=== PATIENT | male | born 1990 | race Caucasian/White ===

== ENCOUNTER 2019-01-12 12:08 | Observation (INO) | payer MEDICAID, SELFPAY ==
--- NOTE | 2019-01-12 12:11 | RAD_ITS ---
STUDY: X-RAY - ABDOMEN/PELVIS REASON FOR EXAM: Male, 28 years old. Abdominal pain with nausea and vomiting. TECHNIQUE: Two AP supine views of the abdomen and pelvis. COMPARISON: None. FINDINGS: Normal visualized lung bases. Gas is seen within a nondistended colon and nondistended small bowel loops suggestive of a possible ileus. IV contrast is seen within the bladder in keeping with prior CT scan the abdomen. The visualized liver, spleen and kidneys are grossly normal in size and morphology. Normal soft tissue structures. Normal visualized osseous structures. RAD/Abdomen Single View IMPRESSION: Findings suggestive of an ileus gas pattern. Electronically Signed: Jason Corona, at 14:36 EDT , Service support ,
[2019-01-12 12:20] VITALS: BMI 28.2
[2019-01-12 12:31] VITALS: BMI 28.3
[2019-01-12] MEDS: Lactated Ringers 1,000 ML 100 ML IV ×2 (14:11→23:47)
--- NOTE | 2019-01-12 19:00 | HP.PCM_ITS ---
History of Present Illness Date of Admission: 01/12/19 Chief Complaint: Abdominal pain The patient is a 28 year old M who presents with a one-day history of abdominal pain along with nausea vomiting and loose stools. The patient has previous admissions for viral gastroenteritis. The patient's daughter last week had nausea vomiting and diarrhea and was diagnosed with gastric enteritis area and the patient presented to urgent care on January 05 with similar complaints of nausea vomiting and diarrhea. He was given a diagnosis of gastritis and recommended to be on a liquid diet and given Zofran tablets. He was instructed to resume his regular diet once his symptoms improved. He said his symptoms weren't that bad last week and he been doing well until yesterday when he noted some looser diarrheal stools again. This morning the patient woke up with abdominal pain and nausea with no true vomiting. The patient presented to the emergency department at [facility] with these complaints. she had mild diffuse abdominal tenderness without peritoneal signs. His extensive laboratory study/workup which included a negative lactic acid level, a white blood cell count was mildly elevated at 11.1 but otherwise normal complete blood count count without differential. Normal comprehensive metabolic panel except for mildly low magnesium level. a CT scan was performed with oral and IV contrast. This was reported as questionable ileus versus early partial small bowel obstruction. I was contacted for possible admission for this patient. I reviewed the CAT scan. I felt this was more likely an ileus picture and I saw no signs of internal herniation or closed loop obstruction. The patient incidentally has no previous abdominal surgical history or any true significant past medical history.. The patient was transferred and directly admitted to [facility]. On exam he was found to have any findings consistent with what was described above. I obtained a repeat KUB. This demonstrated small and large bowel gas without differential distention felt to be interpreted as an ileus pattern. Past Medical History Allergies No Known Allergies Allergy (Verified 01/12/19 12:26) Home Medications: Ambulatory Orders Medication Instructions Recorded NK 01/12/19 Surgical History: - - circumcision at age 12, questionable history of vasectomy Smoking Status: Current every day smoker Tobacco Use: Cigarettes Review of Systems Constitutional: Denies: Chills, Fever, Weight Change HEENT: Denies: Head Aches, Sinus Congestion, Sinus Drainage Cardiovascular: Denies: Chest Pain, Palpitations Respiratory: Denies: Cough, Shortness of breath at rest, Sputum production Gastrointestinal: Reports: Abdominal Pain, Diarrhea, Nausea, Vomiting Genitourinary: Denies: Dysuria Musculoskeletal: Denies: Joint Pain, Joint Tenderness Skin: Denies: Rash, Wounds Neurological: Denies: Numbness, Tingling, Focal weakness Psychiatric: Denies: Anxiety, Depression, Homicidal Ideations, Suicidal Ideations Hematologic/ Lymphatic: Denies: Easy Bruising, Easy Bleeding VTE Information - Inpt Only VTE Present on Admission: No - Physical Exam General: Alert, Oriented x3, Cooperative HEENT: Atraumatic, PERRLA, EOMI, Normocephalic Neck: Supple, No JVD, Negative Carotid Bruits Lungs: Clear to auscultation, Normal air movement Cardiovascular: Regular rate, No murmurs Abdomen: Bowel Sounds Present, Soft, Tender - mild diffusely tender without peritoneal signs, mildly distended Extremities: No edema, Capillary Refill Less than 3 Seconds Skin: No rashes, No breakdown Musculoskeletal: No Tenderness to Palpation of Joints or Extremities Neurological: Cranial nerves II-XII grossly intact Psych/Mental Status: Normal Affect, Appropriate Weight: 84.3 kg Body Mass Index (BMI) 28.2 Microbiology Past 72 Hours 01/12/19 16:10 Stool Lactoferrin - Final Stool 01/12/19 16:10 Stool Occult Blood (YONNY) - Final Stool Assessment/Plan abdominal pain, likely ileus secondary to gastroenteritis We will plan to maintain the patient nothing by mouth for now and IV hydration. Ordered repeat abdominal multiview in morning and repeat laboratory studies. With diarrhea and a recent history of daughter with gastritis would obtain stool studies but most likely this be a viral gastroenteritis.
[2019-01-12 19:41] VITALS: BP 107/74; PULSE 83; RESP 16; TEMP 36.7; O2SAT 98
[2019-01-12] MEDS: Acetaminophen 325 MG Tablet 650 MG PO (19:48)
[2019-01-13 01:45] VITALS: BP 118/74; PULSE 83; RESP 12; TEMP 36.9; O2SAT 98
--- NOTE | 2019-01-13 05:30 | RAD_ITS ---
STUDY: X-RAY - ABDOMEN/PELVIS REASON FOR EXAM: Male, 28 years old. History of nausea and vomiting. TECHNIQUE: AP supine and upright views of the abdomen and pelvis. COMPARISON: Comparison is made with prior study dated January 12, 2019. FINDINGS: Normal visualized lung bases. There is an unremarkable bowel gas pattern. Gas and fecal material is seen throughout the colon. There is no demonstrated free abdominal air. The visualized liver, spleen and kidneys are grossly normal in size and morphology. Normal soft tissue structures. Normal visualized osseous structures. RAD/Abd Inc Decub and/or Erect IMPRESSION: Unremarkable bowel gas pattern at this time. Electronically Signed: Jason Corona, at 9:16 EDT , Service support ,
--- NOTE | 2019-01-13 06:39 | DCINST_ITS ---
You will use the following diet at home:: No restrictions Discharge Activity: May [address], May Shower Allergies/Adverse Reactions: Allergies No Known Allergies Allergy (Verified 01/12/19 12:26) Medications to take at Discharge NK 01/12/19 Test Results: Test results from this visit will be discussed in further detail at your follow- up appointment, if applicable. Please Follow Up With: Dami Alexandre MD When: 1 week
[2019-01-13 06:52] LABS: Absolute Lymphocyte Count 2.69 X10^3/ul (0.83-4.51); Absolute Neutrophil Count 2.9 X10^3/uL (2.0-7.7); Basophil# 0.03 X10^3/uL; Basophil% 0.4 % (0-1); Eosinophil# 0.45 X10^3/uL; Eosinophils% 6.6 % (0-5); Hemoglobin 14.2 g/dl (13.0-16.5); Lymphocyte # 2.69 X10^3/ul (4.0); Lymphocyte % 39.3 % (19-41); Mean Corp Hgb Conc 33.8 g/gl (32-36); Mean Corpuscular Hgb 28.9 pg (27.0-32.0); Mean Corpuscular Volume 85.4 fL (80-94); Mean Platelet Vol. 9.6 fl (6.2-12.0); Monocyte# 0.76 X10^3/uL; Monocyte% 11.1 % (0-10); Neutrophil # 2.89 X10^3/uL (2.7-7.7); Neutrophil % 42.3 % (47-70); Platelet Count 286 K/mm3 (150-450); RBC Distribution Width CV 12.8 % (11.6-14.6); RBC Distribution Width SD 39.5 fl (35.1-43.9); Red Blood Count 4.92 M/mm3 (4.6-6.2); White Blood Count 6.8 K/mm3 (4.4-11.0)
[2019-01-13 06:56] VITALS: BP 123/77; PULSE 90; RESP 16; TEMP 36.6; O2SAT 99
[2019-01-13 07:00] LABS: POSITIVE COUNT NO; POSITIVE DIFFERENTIAL NO; POSITIVE MORPHOLOGY NO
[2019-01-13 07:13] LABS: AST(SGOT) 23 U/L (15-37); Alanine Aminotransfer ALT/SGPT 50 U/L (16-61); Albumin, Serum 3.2 g/dL (3.2-5.0); Alkaline Phosphatase 68 U/L (45-117); Anion Gap 4 (5-15); BUN 7 mg/dL (7-18); BUN/Creat Ratio 10.6 RATIO (10-20); Calcium,Total 8.6 mg/dL (8.5-10.1); Chloride 108 mmol/L (98-107); Creatinine, Serum 0.66 mg/dL (0.70-1.30); EST Glomerular Filtration Rate 152 mL/min (>60); Est Glom Filt Rate - Afr Amer 184 mL/min (>60); Estimated Creatinine Clearance 161.21 ml/min; Globulin 3.3 g/dL (2.2-4.2); Glucose 91 mg/dL (74-106); Magnesium 2.1 mg/dL (1.6-2.6); Phosphorus 3.3 mg/dL (2.5-4.9); Potassium 3.9 mmol/L (3.5-5.1); Protein, Total 6.5 g/dL (6.4-8.2); Sodium Level 140 mmol/L (136-145)
[2019-01-13 07:27] VITALS: BP 126/80; PULSE 71; RESP 18; TEMP 36.5; O2SAT 98
--- NOTE | 2019-01-13 09:12 | NURSING ---
PT TOLERATED REG BREAKFAST, NO ABD PAIN/NAUSEA/DIARRHEA THIS AM. PT WISHES TO LEAVE NOW INSTEAD OF AFTER LUNCH PER DC ORDER. DR MCELROY NOTIFIED & ORDER RECEIVED.
[2019-01-13 09:20] VITALS: BP 126/80; PULSE 71; RESP 18; TEMP 36.5; O2SAT 98
--- NOTE | 2019-01-13 15:57 | DS.PCM_ITS ---
Discharge Date and Diagnosis Date of Admission: 01/12/19 Date of Discharge: 01/13/19 - Primary Discharge Diagnosis nausea vomiting abdominal pain Hospital Course and Treatment Operations: None Summary of Care Provided: The patient is a 28 year old M a one-day history of abdominal pain along with nausea vomiting and loose stools. The patient has previous admissions for viral gastroenteritis. The patient's daughter last week had nausea vomiting and diarrhea and was diagnosed with gastric enteritis area and the patient presented to urgent care on January 05 with similar complaints of nausea vomiting and diarrhea. He was given a diagnosis of gastritis and recommended to be on a liquid diet and given Zofran tablets. He was instructed to resume his regular diet once his symptoms improved. He said his symptoms weren't that bad last week and he been doing well until yesterday when he noted some looser diarrheal stools again. This morning the patient woke up with abdominal pain and nausea with no true vomiting. The patient presented to the emergency department at [facility] with these complaints. she had mild diffuse abdominal tenderness without peritoneal signs. His extensive laboratory study/workup which included a negative lactic acid level, a white blood cell count was mildly elevated at 11.1 but otherwise normal complete blood count count without differential. Normal comprehensive metabolic panel except for mildly low magnesium level. a CT scan was performed with oral and IV contrast. This was reported as questionable ileus versus early partial small bowel obstruction. I was contacted for possible admission for this patient. I reviewed the CAT scan. I felt this was more likely an ileus picture and I saw no signs of internal herniation or closed loop obstruction. The patient incidentally has no previous abdominal surgical history or any true significant past medical history.. The patient was transferred and directly admitted to [facility] [place]. On exam he was found to have any findings consistent with what was described above. I obtained a repeat KUB. This demonstrated small and large bowel gas without differential distention felt to be interpreted as an ileus pattern. the patient noted return of bowel activity with flatus and prominence overnight. Abdominal multiview this morning demonstrated a normal bowel gas pattern. The patient was given a regular diet which he tolerated and was discharged home. - Physical Exam General: Alert, Oriented x3, Cooperative Lungs: Clear to auscultation, Normal air movement Cardiovascular: Regular rate, No murmurs Abdomen: Bowel Sounds Present, Soft, Non Tender Vital Signs Temp Pulse Resp BP Pulse Ox 97.7 F L 71 18 126/80 H 98 01/13/19 09:20 01/13/19 09:20 01/13/19 09:20 01/13/19 09:20 01/13/19 09:20 Oxygen Delivery Method Room Air Weight: 84.3 kg Body Mass Index (BMI) 28.2 Intake and Output for Last 24 Hours 01/11/19 01/12/19 01/13/19 23:59 23:59 23:59 Intake Total 1732 / 1732 Balance 1732 / 1732 Microbiology Past 72 Hours 01/12/19 19:45 Enteric Bacteriology - Final Stool 01/12/19 16:10 Stool Lactoferrin - Final Stool 01/12/19 16:10 Stool Occult Blood (YONNY) - Final Stool Laboratory Tests Past 24 Hrs 01/13/19 01/13/19 06:41 06:41 WBC 6.8 RBC 4.92 Hgb 14.2 Hct 42.0 MCV 85.4 MCH 28.9 MCHC 33.8 RDW 12.8 RDW Differential 39.5 Plt Count 286 MPV 9.6 Immature Gran % (Auto) 0.300 Neut % (Auto) 42.3 L Lymph % (Auto) 39.3 Clay % (Auto) 11.1 H Eos % (Auto) 6.6 H Baso % (Auto) 0.4 Absolute Neuts (auto) 2.9 Absolute Lymphs (auto) 2.69 Total Counted Not Reportable Sodium 140 Potassium 3.9 Chloride 108 H Carbon Dioxide 28.0 Anion Gap 4 L BUN 7 Creatinine 0.66 L Estim Creat Clear Calc 161.21 Est GFR (MDRD) Af Amer 184 Est GFR (MDRD) Non-Af 152 BUN/Creatinine Ratio 10.6 Glucose 91 Calcium 8.6 Phosphorus 3.3 Magnesium 2.1 Total Bilirubin 0.30 AST 23 ALT 50 Alkaline Phosphatase 68 Total Protein 6.5 Albumin 3.2 Globulin 3.3 Albumin/Globulin Ratio 1.0 Discharge Diet: No Restrictions Discharge Activity: May Drive, May Shower Home Medications: Medications to take at Discharge NK 01/12/19 Please Follow Up With: Dami Alexandre MD When: 1 week Medical Necessity - Tobacco Use Smoking Status: Current every day smoker Tobacco Use: Cigarettes Meaningful Use Info Meaningful Use Diagnoses (Choose all that apply): None applicable
== END 2019-01-13 09:15 | disposition home or self-care (01) ==
PROVIDERS: Admitting Provider Surgery; Referring Provider Surgery; Visit Provider Surgery
DX: R10.819 Abdominal tenderness, unspecified site (principal); R11.2 Nausea with vomiting, unspecified; F17.210 Nicotine dependence, cigarettes, uncomplicated
CPT/HCPCS: 36415; 74018; 74019; 80053; 82274; 83630; 83735; 84100; 85025; 87177; 87209; 87506; 96360; 96361; 99218; J7120; A4216; G0378; G0379

== ENCOUNTER 2024-02-09 02:18 | Emergency (ER) | payer MEDICAID, SELFPAY ==
[2024-02-09 02:19] VITALS: BP 133/99; PULSE 91; RESP 18; TEMP 36.6; O2SAT 96; BMI 38.0
--- NOTE | 2024-02-09 02:57 | CT_ITS ---
INDICATION: left flank pain EXAMINATION: CT ABDOMEN AND PELVIS WITHOUT CONTRAST - CT Abdomen And Pelvis W/O Contrast Injection TECHNIQUE: Helically acquired images were obtained of the abdomen and pelvis without oral or IV contrast. A radiation dose optimization technique was used for this scan. IV Contrast dosage and agent: None. Oral contrast: None. RADIATION DOSAGE (If Supplied By Facility): CTDIvol = ( 21.04 ) mGy, DLP = ( 1198.73 ) mGycm COMPARISON: No relevant prior comparison study available FINDINGS: LOWER CHEST: Lung bases are clear. No cardiomegaly or pericardial effusion. LIVER: The liver is normal in size and shape with decreased attenuation. No focal mass. GALLBLADDER AND BILIARY TREE: The gallbladder is normally distended. No gallstones. No gallbladder wall thickening or edema. No intra- or extrahepatic biliary ductal dilation. PANCREAS: No focal cystic or solid mass. SPLEEN: Normal size without focal cystic or solid mass. ADRENAL GLANDS: No nodules. KIDNEYS AND URETERS: Normal renal size and position. Mild left hydronephrosis. 0.3 cm calculus at the left ureteropelvic junction. 0.2 cm right lower pole renal calculus. PERITONEUM: No ascites or free air. No other fluid collection. BOWEL: The stomach is unremarkable. Normal caliber small bowel. No obstruction. No colonic wall thickening or inflammatory changes. No evidence of acute appendicitis. LYMPH NODES: No enlarged mesenteric or retroperitoneal lymph nodes. VESSELS: Aorta is non-dilated. URINARY BLADDER: Unremarkable. REPRODUCTIVE ORGANS: No pelvic masses. ABDOMINAL WALL: No discrete abdominal or pelvic wall hernia. BONES: No acute or suspicious osseous abnormality. CT/Abdomen/Pelvis without Cont IMPRESSION: Mild left hydronephrosis with a 0.3 cm calculus at the ureteropelvic junction. Electronically Signed: Jatin Lo MD at 3:57 EDT ,
[2024-02-09] MEDS: Ketorolac 30 MG/ML Syringe IV (03:03)
[2024-02-09] MEDS: 0.9% Normal Saline (1000mL) 1,000 ML 999 ML IV (03:03)
[2024-02-09 03:18] LABS: Absolute Lymphocyte Count 3.21 X10^3/uL (0.83-4.51); Absolute Neutrophil Count 7.1 X10^3/uL (2.0-7.7); Basophil# 0.09 X10^3/uL; Basophil% 0.8 % (0-1); Eosinophil# 0.29 X10^3/uL; Eosinophils% 2.4 % (0-5); Hematocrit 43.5 % (40-54); Hemoglobin 14.1 g/dL (13.0-16.5); Lymphocyte # 3.21 X10^3/ul (0.83-4.51); Mean Corp Hgb Conc 32.4 g/dL (32-36); Mean Corpuscular Hgb 27.5 pg (27.0-32.0); Mean Platelet Vol. 10.3 fl (6.2-12.0); Monocyte# 1.11 X10^3/uL; Monocyte% 9.4 % (0-10); NRBC Flagged by Analyzer 0 % (0-5); Neutrophil # 7.08 X10^3/uL (2.7-7.7); Neutrophil % 59.6 % (47-70); Platelet Count 369 K/mm3 (150-450); Red Blood Count 5.12 M/mm3 (4.6-6.2); White Blood Count 11.9 K/mm3 (4.4-11.0)
[2024-02-09 03:39] LABS: Anion Gap 5 (5-15); BUN 16 mg/dL (7-18); BUN/Creat Ratio 17.2 RATIO (10-20); Calcium,Total 9.7 mg/dL (8.5-10.1); Chloride 108 mmol/L (98-107); Creatinine, Serum 0.93 mg/dL (0.70-1.30); EST Glomerular Filtration Rate 99 mL/min (>60); Est Glom Filt Rate - Afr Amer 120 mL/min (>60); Estimated Creatinine Clearance 133.88 ml/min; Glucose 123 mg/dL (74-106); Potassium 3.9 mmol/L (3.5-5.1); Sodium Level 140 mmol/L (136-145)
--- NOTE | 2024-02-09 04:16 | EX.ED.DYSGE1 ---
HPI History of Present Illness Chief Complaint: Flank Pain Informant: patient Narrative Narrative: Patient is a 33-year-old male with past medical history of remote kidney stone. He states that he went to bed normally last night and then awoke around 1 or 2 in the morning with sharp left-sided back/flank pain. He states there is no excessive activity and he denies any trauma. He states that there has been no dysuria or hematuria. He denies any loss of bowel or bladder control or IV drug use. He states that despite multiple position changes and even taking a hot bath that there was no improvement of his pain and with concern this could be a repeat kidney stone he presents for evaluation [facility] Medical History no medical history Home Medications ?Medication ?Instructions ?Recorded ?Last Taken ?Type ketorolac 10 mg tablet 10 mg PO 4X/DAY PRN pain 5 days 02/09/24 Unknown Rx #20 tabs tamsulosin 0.4 mg capsule (Flomax) 0.4 mg PO DAILY #14 caps 02/09/24 Unknown Rx Allergy/AdvReac Type Severity Reaction Status Date / Time No Known Allergies Allergy Verified 01/12/19 12:26 Social History Smoking Status: Current every day smoker tobacco type: e-cigarettes ROS ROS ED Constitutional Constitutional ED: Denies chills or fever(s) ENT ENT ED: Denies sore throat Cardiovascular Cardiovascular: Denies chest pain Respiratory/Chest Respiratory/Chest: Denies cough or dyspnea Gastrointestinal Gastrointestinal: Reports abdominal pain; Denies diarrhea, nausea or vomiting Genitourinary Genitourinary ED: Denies dysuria or hematuria Musculoskeletal Musculoskeletal: Reports back pain Integumentary Denies rash Neurologic Neurologic: Denies headache(s) Hematologic/Lymphatic Hematologic/Lymphatic: Denies easy bleeding or easy bruising EXAM Physical Exam Const Vital Signs: 02/09/24 02:19 Temperature 97.8 F Temperature Source Temporal Pulse Rate 91 Respiratory Rate 18 Blood Pressure 133/99 H Blood Pressure Mean 110 Pulse Ox 96 Oxygen Delivery Method Room Air Positive well nourished and well developed General Appearance ED: well developed; Negative for pallor HEENT HEENT Narrative: Normocephalic atraumatic Eyes PERRL and EOMs intact bilaterally General Eye ED: Negative for scleral icterus Neck supple Resp normal respiratory effort and clear to auscultation bilaterally Cardio regular rate and regular rhythm Rate: other Other Details: Heart is regular rate and rhythm without murmurs rubs or gallop Radial and carotid pulses are equal and symmetric GI non-distended and no masses GI Narrative: Abdomen is soft and nondistended with normal active bowel sounds. Patient has mild pain on palpation along the left upper quadrant/lateral abdomen without voluntary guarding or rigidity No pulsatile mass or fluid wave Auscultation: normoactive bowel sounds Palpation: soft Back/Spine Back/Spine Narrative: Positive left CVA pain noted No overlying soft tissue changes to suggest trauma or infection Extremity normal to inspection Neuro oriented x3, CN's II-XII intact bilaterally and no sensory deficits noted Sensorium / Orientation: alert Motor Exam: strength 5/5 throughout Psych mental status grossly normal Skin no rashes or lesions noted, no wounds and skin turgor normal General Skin Exam: Negative for jaundice or pallor MDM MDM MDM Narrative Medical decision making narrative: Patient presented to the ER slightly hypertensive otherwise with stable vitals. He reported sudden onset left-sided back/flank pain that woke him from sleep without trauma or excessive activity. Differential diagnosis is for kidney stone versus UTI/pyelonephritis versus lumbosacral strain versus shingles. Patient does not have a rash going against shingles or cellulitis. He denies any dysuria and based on his male status and young age concern for UTI/pyelonephritis is low. Blood work revealed no signs of acute kidney injury. CT scan confirms stone. After IV fluids and Toradol the patient had resolution of his pain and was actually able to sleep. Therefore at this time as patient does not have HAWK concern for infection is low and his pain has been resolved with treatment in the ER do not feel there is need for further workup or emergent urology consultation. Patient can be treated symptomatically and follow-up on an outpatient basis. History & Record Review Discussion w/independent historian: Patient Lab Data Attestation: I reviewed the patient's lab results. Labs: Laboratory Results - last 24 hr 02/09/24 02:34 WBC 11.9 H RBC 5.12 Hgb 14.1 Hct 43.5 MCV 85.0 MCH 27.5 MCHC 32.4 RDW Std Deviation 40.0 RDW Coeff of Zach 13.0 Plt Count 369 MPV 10.3 Immature Gran % (Auto) 0.800 Neut % (Auto) 59.6 Lymph % (Auto) 27.0 Prentiss % (Auto) 9.4 Eos % (Auto) 2.4 Baso % (Auto) 0.8 Absolute Neuts (auto) 7.1 Absolute Lymphs (auto) 3.21 Nucleated RBC % 0 Sodium 140 Potassium 3.9 Chloride 108 H Carbon Dioxide 27.0 Anion Gap 5 BUN 16 Creatinine 0.93 Estim Creat Clear Calc 133.88 Est GFR (MDRD) Af Amer 120 Est GFR (MDRD) Non-Af 99 BUN/Creatinine Ratio 17.2 Glucose 123 H Calcium 9.7 Radiography Diagnostic Testing: Clinical Impression(s) from Imaging Studies Abdomen/Pelvis CT 02/09/24 02:57 IMPRESSION: Mild left hydronephrosis with a 0.3 cm calculus at the ureteropelvic junction. Electronically Signed: Jatin Lo MD at 3:57 EDT , Discharge Plan Triage Chief Complaint: Flank Pain ED Provider: Mikey Wong Dx/Rx/DC Orders Clinical Impression: Kidney stone on left side, Renal colic Instructions: ED Kidney Stone with Pain Prescriptions: New ketorolac 10 mg tablet 10 mg PO 4X/DAY PRN (Reason: pain) 5 Days Qty: 20 0RF tamsulosin [Flomax] 0.4 mg capsule 0.4 mg PO DAILY Qty: 14 0RF Stand Alone Forms: ED Work / School Excuse Primary Care Provider: Care Physician,No Primary Referrals: Lawson Jeffery MD [Med Staff - Active Staff] - Care Physician,No Primary [Primary Care Provider] - Activity Restrictions/Additional Instructions: Please keep yourself well-hydrated and stay active to help pass your kidney stone. If your pain is not controlled the prescribed medication or he develop a fever over 100.4 or you have any further concerns please return to the ER for repeat evaluation. Print Language: Nauruan Disposition Disposition: Home, Self Care
[2024-02-09 04:18] VITALS: BP 124/79; PULSE 81; RESP 18; TEMP 36.4; O2SAT 98
== END 2024-02-09 04:15 | disposition home or self-care (01) ==
PROVIDERS: Emergency Provider Emergency Medicine; Visit Provider Emergency Medicine
DX: N13.2 Hydronephrosis with renal and ureteral calculous obstruction (principal); F17.290 Nicotine dependence, other tobacco product, uncomplicated; N23 Unspecified renal colic
CPT/HCPCS: 74176; 80048; 85025; 96361; 96374; 99283; J7030; A4216

== ENCOUNTER 2024-05-18 17:59 | Emergency (ER) | payer MEDICAID, SELFPAY ==
[2024-05-18 18:01] VITALS: BP 133/91; PULSE 100; RESP 18; TEMP 36.4; O2SAT 96; BMI 37.1
--- NOTE | 2024-05-18 18:32 | RAD_ITS ---
INDICATION: Trauma, drill injury distal second digit anteriorly EXAMINATION/TECHNIQUE: X-RAY - RIGHT XR Hand Min 3 Views 3 VIEWS COMPARISON: None. FINDINGS: SOFT TISSUES: Mild soft tissue swelling volar to the second distal phalanx. Faint radiodense material in the soft tissues volar and lateral to the second distal phalanx. BONES/JOINTS: No acute fracture. Joint spaces anatomically aligned. No sclerotic or destructive changes observed. RAD/Hand Min 3 Views IMPRESSION: No acute bony injury. Faintly radiodense material in the soft tissues adjacent to the second distal phalanx. Electronically Signed: Tian Gilmore MD at 19:05 EDT ,
[2024-05-18 22:00] VITALS: BP 118/94; PULSE 74; RESP 18; O2SAT 95
--- NOTE | 2024-05-18 22:14 | EDS_ITS ---
HPI History of Present Illness Chief Complaint: Laceration Informant: patient Narrative Narrative: Patient is a 34-year-old male with no reported significant past medical history. He states that over 12 hours ago he was using a drill and excellently drilled into his right index finger. He states that he did not think much of it at that time but as the day past he got redness and swelling and became concerned that he may have injured his bone and therefore comes in for evaluation. Patient states he is unsure of his tetanus status [facility] Medical History no medical history no medical history Home Medications ?Medication ?Instructions ?Recorded ?Last Taken ?Type amoxicillin 875 mg-potassium 1 tab PO BID 10 days #20 tabs 05/18/24 Unknown Rx clavulanate 125 mg tablet Allergy/AdvReac Type Severity Reaction Status Date / Time No Known Allergies Allergy Verified 05/18/24 18:01 Family History no significant family his Surgical History no surgical history Social History Smoking Status: Current every day smoker tobacco type: cigarettes and e-ci garettes ROS ROS ED Constitutional Constitutional ED: Denies chills or fever(s) ENT ENT ED: Denies sore throat Cardiovascular Cardiovascular: Denies chest pain Respiratory/Chest Respiratory/Chest: Denies cough or dyspnea Gastrointestinal Gastrointestinal: Denies abdominal pain, diarrhea, nausea or vomiting Genitourinary Genitourinary ED: Denies dysuria Musculoskeletal Musculoskeletal: Reports other Details: Positive right index finger pain/injury Integumentary Reports other Details: Positive right index finger redness and swelling ; Denies rash Neurologic Neurologic: Denies headache(s), paresthesias or weakness Hematologic/Lymphatic Hematologic/Lymphatic: Denies easy bleeding or easy bruising EXAM Physical Exam Const Vital Signs: 05/18/24 18:01 05/18/24 22:00 05/18/24 22:29 Temperature 97.5 F L 98.2 F Temperature Source Temporal Pulse Rate 100 74 70 Respiratory Rate 18 18 16 Blood Pressure 133/91 H 118/94 H 118/94 H Blood Pressure Mean 105 102 102 Pulse Ox 96 95 95 Oxygen Delivery Method Room Air Room Air Positive well nourished and well developed General Appearance ED: well developed HEENT HEENT Narrative: Normocephalic atraumatic Eyes PERRL and EOMs intact bilaterally Neck supple Resp normal respiratory effort and clear to auscultation bilaterally Cardio regular rate and regular rhythm Extremity Extremity Narrative: Right upper extremity is neurovascularly intact; AIN/PIN are intact and normal. There is a small less than half centimeter puncture wound that is subcutaneous layer deep to the volar aspect of the distal phalanx of the right index finger. There is mild surrounding soft tissue swelling and faint erythema. No active discharge or lymphangitic streaking. No subungual hematoma noted. No ligamentous or tendon injury present. Neuro oriented x3, CN's II-XII intact bilaterally and no sensory deficits noted Sensorium / Orientation: alert Motor Exam: strength 5/5 throughout Psych mental status grossly normal Skin Skin Narrative: Soft tissue injury/changes to the right index finger as documented above MDM MDM MDM Narrative Medical decision making narrative: Patient presented to the ER approximate 12 hours after the injury. There is no active bleeding but with concern for distal phalanx fracture versus retained foreign body a x-ray was obtained. X-ray showed no signs of bony injury but does suggest patient does have small metal shavings within the soft tissue. At this time as the patient does not have findings of fracture or ligamentous or tendon injury and the wound is over 12 hours old and there is no active bleeding there is no need for any type of closure. The small fragments pose a low risk for complication and I do not feel there is any emergent need to open the wound and explore it for potential foreign body retrieval. The patient's tetanus status will be updated and will be started on Augmentin for infectious prophylaxis but otherwise patient can follow-up with orthopedics on an o utpatient basis History & Record Review Discussion w/independent historian: Patient Radiography Diagnostic Testing: Clinical Impression(s) from Imaging Studies Hand X-Ray 05/18/24 18:32 IMPRESSION: No acute bony injury. Faintly radiodense material in the soft tissues adjacent to the second distal phalanx. Electronically Signed: Tian Gilmore MD at 19:05 EDT Reading Location ID and State: [facility] / [place] Tel , Service support , X-ray of the right hand as interpreted by the emergency medicine physician reveals no acute fracture or dislocation but does suggest radiopaque foreign object next to the second distal phalanx Discharge Plan Triage Chief Complaint: Laceration ED Provider: Mikey Wong Dx/Rx/DC Orders Clinical Impression: Puncture wound of right index finger Instructions: ED Puncture Wound (General) Prescriptions: New amoxicillin-pot clavulanate 875-125 mg tablet 1 tab PO BID 10 Days Qty: 20 0RF Primary Care Provider: Care Physician,No Primary Referrals: Ian Lim DO [Med Staff - Active Staff] - Care Physician,No Primary [Primary Care Provider] - Activity Restrictions/Additional Instructions: You did not fracture your bone when you drilled into your finger but there are faint metal shavings present. These should not cause any issues. Take the antibiotic to prevent infection and follow-up with orthopedics to ensure there is no need for removal of the foreign bodies. Return to the ER should you have any further concerns Print Language: Latvian Disposition Disposition: Home, Self Care Discharge Date/Time: 05/18/24 22:47
[2024-05-18] MEDS: Amox/Clavulanate 875 MG Tablet PO (22:25)
[2024-05-18] MEDS: Diphth,Pertuss(Acell),Tet Vac 0.5 ML Vial IM (22:26)
[2024-05-18 22:29] VITALS: BP 118/94; PULSE 70; RESP 16; TEMP 36.8; O2SAT 95
== END 2024-05-18 22:47 | disposition home or self-care (01) ==
PROVIDERS: Emergency Provider Emergency Medicine; Visit Provider Emergency Medicine
DX: S61.230A Puncture wound without foreign body of right index finger without damage to nail, initial encounter (principal); F17.210 Nicotine dependence, cigarettes, uncomplicated; F17.290 Nicotine dependence, other tobacco product, uncomplicated; W29.8XXA Contact with other powered hand tools and household machinery, initial encounter; Z23 Encounter for immunization
CPT/HCPCS: 73130; 90471; 90715; 99282

== ENCOUNTER 2024-12-24 21:59 | Emergency (ER) | payer MEDICAID, SELFPAY ==
[2024-12-24 22:02] VITALS: BP 109/86; PULSE 91; RESP 12; TEMP 36.7; O2SAT 98; BMI 33.0
--- NOTE | 2024-12-24 22:13 | CT_ITS ---
PROCEDURE: ABDOMEN/PELVIS W IV CONT ONLY 12/24/2024 REASON FOR EXAM: ABDOMINAL PAIN, NAUSEA VOMITING AND DIARRHEA TECHNIQUE: Abdomen and pelvis CT with intravenous contrast. Coronal and Sagittal reconstruction series were provided. PATIENT PREPARATION: Per protocol ORAL CONTRAST TYPE: None. AMOUNT: mL One or more dose reduction techniques were used (e.g., Automated exposure control, adjustment of the mA and/or kV according to patient size, use of iterative reconstruction technique. FINDINGS: Lung bases: Lung bases are clear. Liver: Normal size. No mass. Gallbladder: Unremarkable. Spleen: Normal size. Pancreas: Normal size without evidence of mass surrounding inflammation or ductal dilation. Adrenals: Unremarkable. Kidneys: Normal renal sizes. No hydronephrosis. Bladder: Unremarkable. Reproductive Organs: Unremarkable. Bowel: No bowel obstruction. Appendix: Unremarkable. Lymph nodes: Unremarkable. Vasculature: The abdominal aorta and IVC are normal. Peritoneum / Retroperitoneum: Unremarkable. Bones: Unremarkable. CT/Abdomen/Pelvis W IV Cont ONLY IMPRESSION: NO ACUTE FINDINGS AT THE ABDOMEN OR PELVIS ON CONTRAST-ENHANCED CT. Reading Location: [id number]
--- NOTE | 2024-12-24 22:14 | US_ITS ---
PROCEDURE: GALLBLADDER N/A REASON FOR EXAM: PAIN FINDINGS: Liver: Diffusely echogenic suggesting fatty infiltration. Gallbladder: No stones, sludge, wall thickening or tenderness. Common bile duct: Normal measuring 2 mm. Pancreas: Obscured by bowel gas. Other: Normal right kidney. US/Gallbladder IMPRESSION: Fatty infiltration of the liver. Reading Location: [id number]
--- NOTE | 2024-12-24 22:14 | ED.VIS.GI ---
HPI HPI - GI History of Present Illness Chief Complaint: Abd Pain Narrative Narrative: 34-year-old male who denies significant past medical history presents with nausea, vomiting, diarrhea and epigastric abdominal pain that he has had since 11:00 this morning, approximately 11 hours ago. He states he started having epigastric abdominal pain and then had nausea and vomiting all day but mainly diarrhea. He said multiple episodes of loose watery stool, and vomited here in the emergency department which was his third time vomiting today. He denies any hematemesis. No bloody stool. No fevers or chills. No prior abdominal surgeries. He denies any alcohol or marijuana use as well. PFSH PFSH Home Medications ?Medication ?Instructions ?Recorded ?Last Taken ?Type amoxicillin 875 mg-potassium 1 tab PO BID 10 days #20 tabs 05/18/24 Unknown Rx clavulanate 125 mg tablet ondansetron 4 mg disintegrating 4 mg PO Q8H PRN nausea and 12/24/24 Unknown Rx tablet vomiting #12 tabs Allergy/AdvReac Type Severity Reaction Status Date / Time No Known Allergies Allergy Verified 12/24/24 22:02 Social History Smoking Status: Current every day smoker tobacco type: cigarettes and e-cigarettes ROS ROS ED ROS Narrative Constitutional: No fever, no chills. HEENT: No sore throat. No neck pain. No loss of vision. No rhinorrhea. Cardiovascular: No chest pain. No palpitations. No pedal edema. Respiratory: No cough, no shortness of breath. Abdominal: Positive epigastric abdominal pain. Positive nausea and vomiting, 3 episodes, nonbloody. Multiple episodes of loose watery stool/diarrhea. Genitourinary: No dysuria. No hematuria. Neurologic: No headaches. No dizziness. No lightheadedness. EXAM Physical Exam Narrative Exam Narrative: Afebrile. Vital signs noted. Nontoxic-appearing. Cardiovascular examination reveals a regular rate and rhythm. Lungs are clear to auscultation bilaterally. The abdomen is soft with tenderness in the epigastrium with minimal in the right upper quadrant. Negative Bolton sign. No guarding or rebound. Positive bowel sounds. No lower abdominal tenderness. Neurological examination nonfocal, nonlateralizing. Const Vital Signs: 12/24/24 22:02 Temperature 98.1 F Temperature Source Oral Pulse Rate 91 Respiratory Rate 12 Blood Pressure 109/86 H Blood Pressure Mean 93 Pulse Ox 98 Oxygen Delivery Method Room Air MDM MDM MDM Narrative Medical decision making narrative: The differential diagnosis includes but not limited to pancreatitis versus gastroenteritis versus diverticulitis versus acute cholecystitis. I have lower suspicion for acute cholecystitis. He may also have some degree of intravascular volume depletion versus dehydration given his multiple episodes of diarrhea. He may be acute hypokalemic as well. He was administered morphine and ondansetron and a bolus of normal saline 1 L intravenously. I reviewed his laboratory work and he has slight leukocytosis of 13.8 with hemoglobin 15.9, hematocrit 48.2, platelet count 402. CMP is grossly unremarkable except for glucose of 101 but he has normal anion gap of 14, no dehydration with a BUN of 11 and creatinine 0.81. LFTs are grossly unremarkable. Lipase normal at 24 so I doubt pancreatitis. I reviewed the radiology reports for the gallbladder ultrasound which shows no evidence of sludge or stones, normal common bile duct. To look for diverticulitis or gastroenteritis, I reviewed the radiology report of the CT of the abdomen and pelvis and there is no acute process. Upon repeat examination, he is resting comfortably. I will write him a prescription for Zofran ODT's #12 and he will start clear liquid diet and advance as tolerated. I do not feel he requires observation or admission. He will be discharged to follow-up with a primary care provider. Return instructions to the emergency department were reviewed. Disposition is discharged home in stable condition. History & Record Review Discussion w/independent historian: Patient Additional record(s) reviewed:: Prior labs (No significant change) Lab Data Attestation: I reviewed the patient's lab results. Labs: Laboratory Results - last 24 hr 12/24/24 22:26 WBC 13.8 H RBC 5.73 Hgb 15.9 Hct 48.2 MCV 84.1 MCH 27.7 MCHC 33.0 RDW Std Deviation 40.9 RDW Coeff of Zach 13.3 Plt Count 402 MPV 10.1 Immature Gran % (Auto) 0.500 Neut % (Auto) 72.6 H Lymph % (Auto) 15.8 L [place] % (Auto) 8.2 Eos % (Auto) 2.5 Baso % (Auto) 0.4 Absolute Neuts (auto) 10.0 H Absolute Lymphs (auto) 2.19 Nucleated RBC % 0 Sodium 140 Potassium 4.1 Chloride 102 Carbon Dioxide 23.3 Anion Gap 14 BUN 11 Creatinine 0.81 Estim Creat Clear Calc 146.28 Est GFR (MDRD) Non-Af 119 BUN/Creatinine Ratio 14.0 Glucose 101 H Calcium 9.4 Total Bilirubin 0.21 AST 14 ALT 21 Alkaline Phosphatase 91 Total Protein 7.3 Albumin 4.4 Globulin 2.9 Albumin/Globulin Ratio 1.5 Lipase 24 Radiography Diagnostic Testing: Clinical Impression(s) from Imaging Studies Abdomen/Pelvis CT 12/24/24 22:13 IMPRESSION: NO ACUTE FINDINGS AT THE ABDOMEN OR PELVIS ON CONTRAST-ENHANCED CT. Reading Location: [facility] Gallbladder Ultrasound 12/24/24 22:14 IMPRESSION: Fatty infiltration of the liver. Reading Location: [facility] Discharge Plan Triage Chief Complaint: Abd Pain ED Provider: Brian Bojorquez Dx/Rx/DC Orders Clinical Impression: Nausea, vomiting, and diarrhea, Abdominal pain Instructions: ED Diet Vomiting Diarrhea, ED Gastroenteritis, Viral (Adult), ED Abdominal Pain Unkn Cause Male... Prescriptions: New ondansetron 4 mg tablet,disintegrating 4 mg PO Q8H PRN (Reason: nausea and vomiting) Qty: 12 0RF No Action amoxicillin-pot clavulanate 875-125 mg tablet 1 tab PO BID 10 Days Qty: 20 0RF Primary Care Provider: Care Physician,No Primary Referrals: Scott Yung MD [Med Staff - Active Staff] - 3-5 Days if not improving Care Physician,No Primary [Primary Care Provider] - Activity Restrictions/Additional Instructions: Clear liquid diet and advance as tolerated. Return with increased abdominal pain, new or worsening symptoms. Print Language: Gabonese Disposition Disposition: Home, Self Care
[2024-12-24] MEDS: 0.9% Normal Saline (1000mL) 1,000 ML 999 ML IV (22:23)
[2024-12-24] MEDS: Morphine 4 MG/ML Syringe IV (22:23)
[2024-12-24] MEDS: Ondansetron 4 MG/2 ML Vial IV (22:23)
[2024-12-24 22:31] LABS: Absolute Lymphocyte Count 2.19 X10^3/uL (0.83-4.51); Basophil# 0.05 X10^3/uL; Basophil% 0.4 % (0-1); Eosinophil# 0.34 X10^3/uL; Eosinophils% 2.5 % (0-5); Hematocrit 48.2 % (40-54); Hemoglobin 15.9 g/dL (13.0-16.5); Lymphocyte # 2.19 X10^3/ul (0.83-4.51); Lymphocyte % 15.8 % (19-41); Mean Corpuscular Hgb 27.7 pg (27.0-32.0); Mean Corpuscular Volume 84.1 fL (80-94); Mean Platelet Vol. 10.1 fl (6.2-12.0); Monocyte# 1.13 X10^3/uL; Monocyte% 8.2 % (0-10); NRBC Flagged by Analyzer 0 % (0-5); Neutrophil # 10.04 X10^3/uL (2.7-7.7); Neutrophil % 72.6 % (47-70); Platelet Count 402 K/mm3 (150-450); RBC Distribution Width CV 13.3 % (11.6-14.6); RBC Distribution Width SD 40.9 fl (35.1-43.9); Red Blood Count 5.73 M/mm3 (4.6-6.2); White Blood Count 13.8 K/mm3 (4.4-11.0)
[2024-12-24 23:19] LABS: Lipase 24 U/L (13-75)
[2024-12-24 23:50] LABS: ALB/GLOB Ratio 1.5 RATIO (0.9-2.4); AST(SGOT) 14 U/L (<=37); Alanine Aminotransfer ALT/SGPT 21 U/L (<=46); Albumin, Serum 4.4 g/dL (3.5-5.0); Alkaline Phosphatase 91 U/L (40-129); Anion Gap 14 (5-15); BUN 11 mg/dL (4-19); Calcium,Total 9.4 mg/dL (7.6-11.0); Carbon Dioxide 23.3 mmol/L (21.0-32.0); Chloride 102 mmol/L (98-108); Creatinine, Serum 0.81 mg/dL (0.70-1.20); EST Glomerular Filtration Rate 119 (>60); Estimated Creatinine Clearance 146.28 ml/min (50-250); Globulin 2.9 g/dL (2.2-4.2); Glucose 101 mg/dL (70-99); Potassium 4.1 mmol/L (3.3-5.1); Protein, Total 7.3 g/dL (5.9-8.4); Sodium Level 140 mmol/L (133-145); Total Bilirubin 0.21 mg/dL (0.00-1.30)
[2024-12-25 00:12] VITALS: BP 119/90; PULSE 94; RESP 20; TEMP 36.2; O2SAT 99
== END 2024-12-25 00:12 | disposition home or self-care (01) ==
PROVIDERS: Emergency Provider Emergency Medicine; Referring Provider Emergency Medicine; Visit Provider Emergency Medicine
DX: R11.2 Nausea with vomiting, unspecified (principal); R19.7 Diarrhea, unspecified; R10.13 Epigastric pain; F17.210 Nicotine dependence, cigarettes, uncomplicated; F17.290 Nicotine dependence, other tobacco product, uncomplicated; D72.829 Elevated white blood cell count, unspecified
CPT/HCPCS: 74177; 76705; 80053; 83690; 85025; 96361; 96374; 96375; 99284; Q9967; A4216; J2405

== ENCOUNTER 2024-12-26 13:42 | Emergency (ER) | payer MEDICAID, SELFPAY ==
[2024-12-26 13:42] VITALS: BP 140/92; PULSE 114; RESP 16; TEMP 36.7; O2SAT 97; BMI 32.3
[2024-12-26 15:37] LABS: Absolute Lymphocyte Count 2.06 X10^3/uL (0.83-4.51); Absolute Neutrophil Count 4.6 X10^3/uL (2.0-7.7); Basophil# 0.03 X10^3/uL; Basophil% 0.4 % (0-1); Eosinophils% 3.8 % (0-5); Hematocrit 42.4 % (40-54); Hemoglobin 14.1 g/dL (13.0-16.5); Lymphocyte # 2.06 X10^3/ul (0.83-4.51); Lymphocyte % 26.2 % (19-41); Mean Corp Hgb Conc 33.3 g/dL (32-36); Mean Corpuscular Volume 84.1 fL (80-94); Mean Platelet Vol. 10.1 fl (6.2-12.0); Monocyte# 0.82 X10^3/uL; Monocyte% 10.4 % (0-10); NRBC Flagged by Analyzer 0 % (0-5); Neutrophil # 4.61 X10^3/uL (2.7-7.7); Neutrophil % 58.8 % (47-70); Platelet Count 343 K/mm3 (150-450); RBC Distribution Width CV 13.2 % (11.6-14.6); RBC Distribution Width SD 40.4 fl (35.1-43.9); Red Blood Count 5.04 M/mm3 (4.6-6.2); White Blood Count 7.9 K/mm3 (4.4-11.0)
[2024-12-26 16:00] VITALS: BP 134/76; PULSE 99; RESP 16; TEMP 37.2; O2SAT 97
[2024-12-26 16:00] LABS: ALB/GLOB Ratio 1.5 RATIO (0.9-2.4); AST(SGOT) 13 U/L (<=37); Alanine Aminotransfer ALT/SGPT 18 U/L (<=46); Albumin, Serum 3.9 g/dL (3.5-5.0); Alkaline Phosphatase 78 U/L (40-129); Anion Gap 9 (5-15); BUN 6 mg/dL (4-19); BUN/Creat Ratio 9.5 RATIO (10-20); Calcium,Total 8.9 mg/dL (7.6-11.0); Chloride 105 mmol/L (98-108); Creatinine, Serum 0.65 mg/dL (0.70-1.20); EST Glomerular Filtration Rate 127 (>60); Estimated Creatinine Clearance 180.38 ml/min (50-250); Globulin 2.6 g/dL (2.2-4.2); Glucose 110 mg/dL (70-99); Lipase 20 U/L (13-75); Protein, Total 6.6 g/dL (5.9-8.4); Sodium Level 137 mmol/L (133-145); Total Bilirubin 0.21 mg/dL (0.00-1.30)
--- NOTE | 2024-12-26 16:28 | EDS_ITS ---
HPI HPI - GI History of Present Illness Chief Complaint: Abd Pain Informant: patient Abdominal Pain/Flank Pain Onset: Days (3) Context: Sudden Onset Timing: Continuous Quality: Cramping and Sharp Location: Epigastric Worsened by: Food Relieved by: Nothing Nausea/Vomiting/Emesis GI Symptom: Positive for Nausea and Vomiting Onset: Days (3) Quality: Positive for Nonbilious; Negative for Blood streaks, Coffee ground or Hematemesis Diarrhea/Melena/Hematochezia GI Symptom: Positive for Diarrhea; Negative for Melena or Hematochezia Onset: Days (3) Stool Quality: Positive for Watery Associated Symptoms Associated Symptoms: Negative for Dysuria, Frequency or Hematuria Narrative Narrative: Patient presents with abdominal pain that has been constant for the past 3 days. Patient states patient rather suddenly. Patient states it is constant. Patient describes it as sharp and cramping. Patient states the pain is mainly over the epigastric area. Patient states it is worse whenever he eats or drinks anything. Patient states nothing makes it better. Patient admits to some nausea and vomiting. Patient denies any hematemesis or coffee-ground emesis. Patient admits to some diarrhea. Patient states it is watery. Patient denies any melena or hematochezia. Patient denies any urinary complaints. PFSH PFS Home Medications ?Medication ?Instructions ?Recorded ?Last Taken ?Type amoxicillin 875 mg-potassium 1 tab PO BID 10 days #20 tabs 05/18/24 Unknown Rx clavulanate 125 mg tablet ondansetron 4 mg disintegrating 4 mg PO Q8H PRN nausea and 12/24/24 Unknown Rx tablet vomiting #12 tabs Allergy/AdvReac Type Severity Reaction Status Date / Time No Known Allergies Allergy Verified 12/26/24 13:43 Social History Smoking Status: Current every day smoker tobacco type: cigarettes and e- cigarettes EXAM Physical Exam Const Vital Signs: 12/26/24 13:42 12/26/24 16:00 Temperature 98.1 F 98.9 F Temperature Source Temporal Temporal Pulse Rate 114 H 99 Respiratory Rate 16 16 Blood Pressure 140/92 H 134/76 H Blood Pressure Mean 108 95 Pulse Ox 97 97 Oxygen Delivery Method Room Air Room Air MDM MDM MDM Narrative Medical decision making narrative: Differential diagnosis includes gastritis, peptic ulcer disease, duodenal ulcer, pancreatitis, electrolyte abnormality, viral illness, and electrolyte abnormality. CBC will be obtained to assess for leukocytosis and anemia. Comprehensive metabolic profile will be obtained to assess for electrolyte a bnormality, hepatic function, and renal function. Lipase will be obtained to assess for pancreatitis. Patient was seen here 2 days ago and had a CT scan and right upper quadrant abdominal ultrasound which were negative. I do not feel these need to be repeated at this time. History & Record Review Additional record(s) reviewed:: Prior ED visit and Prior labs Lab Data Attestation: I reviewed the patient's lab results. Lab results narrative: CBC was reviewed and was within normal limits. Comprehensive metabolic profile was reviewed and was essentially within normal limits. Lipase was reviewed and was normal at 20. Labs: Laboratory Results - last 24 hr 12/26/24 15:30 WBC 7.9 RBC 5.04 Hgb 14.1 Hct 42.4 MCV 84.1 MCH 28.0 MCHC 33.3 RDW Std Deviation 40.4 RDW Coeff of Zach 13.2 Plt Count 343 MPV 10.1 Immature Gran % (Auto) 0.400 Neut % (Auto) 58.8 Lymph % (Auto) 26.2 [place] % (Auto) 10.4 H Eos % (Auto) 3.8 Baso % (Auto) 0.4 Absolute Neuts (auto) 4.6 Absolute Lymphs (auto) 2.06 Nucleated RBC % 0 Sodium 137 Potassium 4.0 Chloride 105 Carbon Dioxide 23.0 Anion Gap 9 BUN 6 Creatinine 0.65 L Estim Creat Clear Calc 180.38 Est GFR (MDRD) Non-Af 127 BUN/Creatinine Ratio 9.5 L Glucose 110 H Calcium 8.9 Total Bilirubin 0.21 AST 13 ALT 18 Alkaline Phosphatase 78 Total Protein 6.6 Albumin 3.9 Globulin 2.6 Albumin/Globulin Ratio 1.5 Lipase 20 Treatment and Re-Evaluation :: Patient was given IV fluids, morphine, and Zofran. Patient was feeling better on reevaluation. Patient was unable to provide stool specimen for enteric pathogens and C. difficile. Patient was instructed to follow-up with his primary care physician in 5 to 7 days. Patient instructed return if worse in any way. Patient understood and was agreeable with the plan. All questions were answered. Discharge Plan Triage Chief Complaint: Abd Pain ED Provider: James Jacques Dx/Rx/DC Orders Clinical Impression: Nausea, vomiting, and diarrhea, Abdominal pain Instructions: ED Abdominal Pain Unkn Cause Male... Prescriptions: No Action amoxicillin-pot clavulanate 875-125 mg tablet 1 tab PO BID 10 Days Qty: 20 0RF ondansetron 4 mg tablet,disintegrating 4 mg PO Q8H PRN (Reason: nausea and vomiting) Qty: 12 0RF Primary Care Provider: Care Physician,No Primary Referrals: Scott Yung MD [Med Staff - Active Staff] - 5-7 Days Care Physician,No Primary [Primary Care Provider] - Print Language: Telugu Disposition Disposition: Home, Self Care
[2024-12-26] MEDS: Morphine 4 MG/ML Syringe IV (17:09)
[2024-12-26] MEDS: Ondansetron 4 MG/2 ML Vial IV (17:09)
[2024-12-26] MEDS: 0.9% Normal Saline (1000mL) 1,000 ML 999 ML IV (17:09)
--- NOTE | 2024-12-26 17:46 | ED.RN ---
LACTIC 2.2 AWARE
--- NOTE | 2024-12-26 17:52 | ED.RN ---
ENMANUEL REPORTED ON WRONG JUANJO. DR PIERSON
[2024-12-26 18:17] VITALS: RESP 16
--- NOTE | 2024-12-26 18:17 | ED.RN ---
patient states his only ride is here right now and would like to leave. Dr. Jacques notified.
== END 2024-12-26 18:18 | disposition home or self-care (01) ==
PROVIDERS: Emergency Provider Emergency Medicine; Visit Provider Emergency Medicine
DX: R11.2 Nausea with vomiting, unspecified (principal); R19.7 Diarrhea, unspecified; F17.210 Nicotine dependence, cigarettes, uncomplicated; F17.290 Nicotine dependence, other tobacco product, uncomplicated; R10.13 Epigastric pain
CPT/HCPCS: 80053; 83690; 85025; 96361; 96374; 99283; A4216; J2405